=== PATIENT | male | born 1965 | race Caucasian/White ===

== ENCOUNTER 2021-06-26 11:30 | Outpatient (CLI) | payer MEDICAID ==
--- NOTE | 2021-06-26 12:46 | XRAY Report ---
PROCEDURE: Cervical Spine 2 View INDICATIONS: CERVICALGIA TECHNIQUE: 4 view(s) of the cervical spine were acquired. COMPARISON: None. FINDINGS: Bones: No fractures or dislocations to the T1 level. The lateral masses of C1 appear intact on the odontoid view. No suspicious bony lesions. There is reversal of the normal cervical lordosis, with the apex at the C5-C6 level. There is minima l anterolisthesis seen at C4-C5. There is mild disc space narrowing at C4-C5, with moderate to severe disc space narrowing at C5-C6. T here is endplate irregularity and sclerosis, with bridging anterior osteophytes. Moderate disc space narrowing is seen at C6-C7. Soft tissues: No prevertebral soft tissue swelling. The visualized pulmonary apices are unremarkab le. IMPRESSION: Cervical spine degenerative changes are seen, which are worst at C5-C6. Reviewed by: Jermaine Almeida MD on 06/26/2021 11:45 AM [facility] Approved by: Jermaine Almeida MD on 06/26/2021 11:45 AM [facility] Station ID: [id number]
== END 2021-06-26 11:31 | disposition home or self-care (01) ==
LOC: DI.N 11:30
PROVIDERS: ATTEND Family Medicine
DX: M47.812 Spondylosis without myelopathy or radiculopathy, cervical region (principal)

== ENCOUNTER 2021-08-26 08:12 | Outpatient (CLI) | payer MEDICAID ==
[2021-08-26 12:35] LABS: ALBUMIN 4.2 g/dL (3.2-5.5); ALBUMIN/GLOBULIN RATIO 1.3 (1.0-2.2); ALKALINE PHOSPHATASE 60 IU/L (42-121); ALT ALANINE AMINOTRANSFERASE 23 IU/L (10-60); AST ASPARTATE AMINOTRANSFERASE 19 IU/L (10-42); BILIRUBIN,TOTAL 1.7 mg/dL (0.2-1.0); BUN - BLOOD UREA NITROGEN 21 mg/dL (6-20); CALCIUM 9.3 mg/dL (8.5-10.3); CARBON DIOXIDE - CO2 29 mmol/L (21-32); CHLORIDE 99 mmol/L (101-111); CHOL/HDL RATIO 3.9 (<5.0); CHOLESTEROL 180 mg/dL; CREATININE 1.6 mg/dL (0.6-1.2); GFR - MDRD 45 (>89); GLUCOSE 130 mg/dL (70-100); HDL CHOLESTEROL 46 mg/dL; LDL CHOLESTEROL,CALCULATED 110 mg/dL; LDL/HDL RATIO 2.4 (<3.6); POTASSIUM 3.5 mmol/L (3.5-5.0); SODIUM 138 mmol/L (135-145); TOTAL PROTEIN 7.4 g/dL (6.7-8.2); TRIGLYCERIDES 119 mg/dL; VLDL CHOLESTEROL 24 mg/dL
[2021-08-26 12:46] LABS: THYROID STIMULATING HORMONE 2.32 uIU/mL (0.34-5.60)
[2021-08-26 13:06] LABS: BASOPHILS % (AUTO) 0.6 %; EOSINOPHILS # (AUTO) 0.2 10^3/uL (0.0-0.7); EOSINOPHILS % (AUTO) 2.2 %; HGB - HEMOGLOBIN 17.1 g/dL (14.0-18.0); LYMPHOCYTES # (AUTO) 2.7 10^3/uL (1.5-3.5); LYMPHOCYTES % (AUTO) 37.6 %; MEAN CORPUSCULAR HEMOGLOBIN 30.3 pg (27.0-31.0); MEAN CORPUSCULAR HGB CONC 34.2 g/dL (32.0-36.0); MEAN CORPUSCULAR VOLUME 88.7 fL (80.0-94.0); MEAN PLATELET VOLUME 8.7 fL (7.4-11.4); MONOCYTES # (AUTO) 0.7 10^3/uL (0.0-1.0); MONOCYTES % (AUTO) 9.3 %; NEUTROPHILS # (AUTO) 3.6 10^3/uL (1.5-6.6); PLT - PLATELET COUNT 243 10^3/uL (130-450); RED BLOOD COUNT 5.64 10^6/uL (4.70-6.10); RED CELL DISTRIBUTION WIDTH 12.9 % (12.0-15.0); WHITE BLOOD COUNT 7.2 x10^3/uL (4.8-10.8)
== END 2021-08-26 08:13 | disposition home or self-care (01) ==
LOC: LAB.N 08:12
PROVIDERS: ATTEND Family Medicine
DX: I10 Essential (primary) hypertension (principal); B19.20 Unspecified viral hepatitis C without hepatic coma; R53.82 Chronic fatigue, unspecified
CPT/HCPCS: 36415; 80053; 80061; 83721; 84443; 85025

== ENCOUNTER 2022-01-10 10:44 | Outpatient (CLI) | payer MEDICAID ==
--- NOTE | 2022-01-10 14:12 | Ultrasound Report ---
PROCEDURE: Pelvic Limited or F/U INDICATIONS: Bilateral inguinal hernias TECHNIQUE: Real-time transabdominal scanning was performed of the pelvic organs, with image documentation. COMPARISON: None FINDINGS: Fat-containing right inguinal hernia with fascial defect measuring 1 cm. Left inguinal hernia containing both bowel and fat with 1.5 cm fascial defect. IMPRESSION: Bilateral inguinal hernias, containing bowel and fat on the left and only fat on the right. Reviewed by: Karan Smith MD on 01/10/2022 2:10 PM PST Approved by: Karan Smith MD on 01/10/2022 2:10 PM PST Station ID: [id number]
--- NOTE | 2022-01-10 16:57 | MRI Report ---
PROCEDURE: Cervical Spine W/O INDICATIONS: Cervical spine stenosis TECHNIQUE: Noncontrast sagittal T1 spin echo and T2 fast spin echo, sagittal STIR, foraminal oblique sagittal T2 fast spin echo, and axial gradient echo or T2 fast spin echo through the cervical spine. COMPARISON: None. FINDINGS: Normal cervical spine vertebral body height and alignment. Discogenic marrow edema at the opposing C5 and C6 endplates. Otherwise normal bone marrow signal intensity. Possible elevated T2 signal of the cord at the C3-C4 level corresponding to an area of moderate to se leesa spinal canal stenosis, potentially indicating cord edema. Otherwise normal cord signal. Regional soft tissues are normal in appearance. C2-C3: No spinal canal stenosis. No neural foraminal narrowing on the left. Facet and uncovertebral hypertrophy contribute to mild right neural foraminal stenosis. C3-C4: Posterior disc osteophyte complex flattens the ventral cord. Buckling of ligamentum flavum f lattens the dorsal cord. There is near complete effacement of CSF ventral and dorsal to the cord. Fac et and uncovertebral hypertrophy combine to produce moderate to severe neural foraminal stenosis on t he left and moderate neural foraminal stenosis on the right. C4-C5: Posterior disc-osteophyte complex flattens the ventral cord. Facet and uncovertebral hypertro phy contribute to moderate left and mild right neural foraminal stenosis. C5-C6: Posterior disc-osteophyte complex flattens the ventral cord. Facet and uncovertebral hypertro phy combined to produce moderate left and mild right neural foraminal stenosis. C6-C7: No spinal canal stenosis or neural foraminal stenosis on the left. Facet and uncovertebral hy pertrophy combine to produce mild right neural foraminal narrowing. C7-T1: No spinal canal or neural foraminal stenosis. IMPRESSION: Moderate to severe spinal canal stenosis at C3-C4 with possible elevated T2 signal in the cord at thi s level potentially representing cord edema due to compression. Additional degenerative changes as described above including varying degrees of neural foraminal sten osis up to moderate-severe. Reviewed by: Karan Smith MD on 01/10/2022 4:56 PM PST Approved by: Karan Smith MD on 01/10/2022 4:56 PM PST Station ID: [id number]
== END 2022-01-10 10:45 | disposition home or self-care (01) ==
LOC: DI 10:44
PROVIDERS: ATTEND Family Medicine
DX: K40.20 Bilateral inguinal hernia, without obstruction or gangrene, not specified as recurrent (principal); M48.02 Spinal stenosis, cervical region; M47.812 Spondylosis without myelopathy or radiculopathy, cervical region; M50.31 Other cervical disc degeneration, high cervical region

== ENCOUNTER 2022-02-08 07:39 | Outpatient (CLI) | payer MEDICAID ==
[2022-02-08 12:41] LABS: HGB - HEMOGLOBIN 17.1 g/dL (14.0-18.0); MEAN CORPUSCULAR HGB CONC 34.2 g/dL (32.0-36.0); MEAN CORPUSCULAR VOLUME 90.7 fL (80.0-94.0); MEAN PLATELET VOLUME 8.8 fL (7.4-11.4); RED BLOOD COUNT 5.51 10^6/uL (4.70-6.10); WHITE BLOOD COUNT 7.9 x10^3/uL (4.8-10.8)
[2022-02-08 13:10] LABS: CREATININE 1.8 mg/dL (0.6-1.2); POTASSIUM 3.2 mmol/L (3.5-5.0)
[2022-02-08 13:49] LABS: ESTIMATED AVERAGE GLUCOSE 111 mg/dL (70-100); HEMOGLOBIN A1c% 5.5 % (4.27-6.07)
== END 2022-02-08 07:40 | disposition home or self-care (01) ==
LOC: LAB.N 07:39
PROVIDERS: ATTEND Family Medicine
DX: I12.9 Hypertensive chronic kidney disease with stage 1 through stage 4 chronic kidney disease, or unspecified chronic kidney disease (principal); N18.31 Chronic kidney disease, stage 3a; R73.9 Hyperglycemia, unspecified; K40.90 Unilateral inguinal hernia, without obstruction or gangrene, not specified as recurrent; M54.2 Cervicalgia; G43.909 Migraine, unspecified, not intractable, without status migrainosus
CPT/HCPCS: 36415; 80048; 83036; 85027

== ENCOUNTER 2022-02-09 09:24 | Outpatient (CLI) | payer MEDICAID | END 2022-02-09 09:25 | disposition home or self-care (01) | LOC: LAB.N 09:24 | PROVIDERS: ATTEND Surgery | DX: Z01.812 Encounter for preprocedural laboratory examination (principal); K40.90 Unilateral inguinal hernia, without obstruction or gangrene, not specified as recurrent; Z20.822 Contact with and (suspected) exposure to COVID-19 ==

== ENCOUNTER 2022-04-21 11:40 | Day surgery (SDC) | payer MEDICAID ==
[2022-04-21] MEDS ORDERED: LACTATED RINGERS 1,000 ML IV ONE ×2 (11:44→16:02)
[2022-04-21] MEDS ORDERED: CEFAZOLIN SODIUM IN 0.9 % NACL 2 GM/50 ML BAG IV ONE (11:57)
[2022-04-21] MEDS ORDERED: LIDOCAINE 2%-EPI 1:100000 20 ML MDV ONE (12:48)
[2022-04-21] MEDS ORDERED: BUPIVACAINE 0.25% PF 10 ML VIAL ONE ×2 (12:48→15:22)
--- NOTE | 2022-04-21 13:03 | ANESTHESIA ---
Pre-Anesthesia VS, & Labs - Diagnosis Left Inguinal Hernia - Procedure Open L inguinal hernia repair w mesh Vital Signs: Temp Pulse Resp BP Pulse Ox 36.1 C L 86 16 138/105 H 97 04/21/22 11:54 04/21/22 11:54 04/21/22 11:54 04/21/22 11:54 04/21/22 11:54 Height: 6 ft Weight (kg): 77.9 kg Body Mass Index: 23.3 BMI Classification: Healthy weight - NPO >8 hours - Lab Results Lab results reviewed: Yes Home Medications and Allergies Lisinopril [Zestril] 20 mg PO DAILY 02/08/22 amLODIPine [Norvasc] 10 mg PO DAILY 02/08/22 Allergies/Adverse Reactions: Allergies Allergy/AdvReac Type Severity Reaction Status Date / Time No Known Drug Allergies Allergy Verified 04/21/22 12:03 Anes History & Medical History - Anesthetic History Anesthesia Complications: reports: No previous complications Family history of Anesthesia Complications: Denies Family history of Malignant Hyperthermia: Denies - Medical History Cardiovascular: reports: Hypertension, Murmur, Valve disorder, Other Pulmonary: reports: None Gastrointestinal: reports: Hepatitis Urinary: reports: None Musculoskeletal: reports: Other Endocrine/Autoimmune: reports: None Skin: reports: None - Surgical History Eyes Ears Nose Throat (EENT): reports: Tonsil/Adenoidectomy Exam General: Alert, Oriented x3, Cooperative Dental: WNL Plan Anesthesia Type: General Consent for Procedure(s) Verified and Reviewed: Yes Code Status: Attempt Resuscitation ASA classification: 2-Mild systemic disease Is this case an emergency?: No
[2022-04-21] MEDS ORDERED: ePHEDrine 50 MG/ML VIAL IVP PRN (13:46)
[2022-04-21] MEDS ORDERED: ONDANSETRON 4 MG/2 ML VIAL IVP PRN (13:46)
[2022-04-21] MEDS ORDERED: fentaNYL 100 MCG/2 ML VIAL IVP PRN (13:46)
[2022-04-21] MEDS ORDERED: ATROPINE ABBOJECT 1 MG/10 ML SYRINGE IVP PRN (13:46)
[2022-04-21] MEDS ORDERED: NALOXONE 0.4 MG/ML VIAL IVP PRN (13:46)
[2022-04-21] MEDS ORDERED: MORPHINE 2 MG/ML CARPUJECT IVP PRN (13:46)
[2022-04-21] MEDS ORDERED: HYDROmorphone 0.5 MG/0.5 ML SYRINGE IVP PRN (13:46)
[2022-04-21] MEDS ORDERED: METOCLOPRAMIDE 10 MG/2 ML VIAL IVP PRN (13:46)
[2022-04-21] MEDS ORDERED: LACTATED RINGERS 1,000 ML IV SCH (14:00)
--- NOTE | 2022-04-21 14:45 | HISTORY & PHYSICAL EXAMINATION ---
Chief Complaint - Chief Complaint Chief Complaint: left groin bulge History of Present Illness - History Obtained From Records Reviewed: yes History obtained from: pt Exam Limitations: none - History of Present Illness HPI Comment/Other: painful left inguinal hernia. no problems on the right History - Past Medical History Cardiovascular: reports: Hypertension, Murmur, Valve disorder, Other Respiratory: reports: None Endocrine/Autoimmune: reports: None GI: reports: Hepatitis : reports: None HEENT: reports: Chronic vision loss Psych: reports: Depression, Anxiety, Panic attacks Musculoskeletal: reports: Other Derm: reports: None MRSA Hx?: No - Past Surgical History HEENT: reports: Tonsil/Adenoidectomy Meds/Allgy - Home Medications Home Medications: Ambulatory Orders Medication Instructions Recorded Confirmed Lisinopril [Zestril] 20 mg PO DAILY 02/08/22 04/21/22 amLODIPine [Norvasc] 10 mg PO DAILY 02/08/22 04/21/22 - Allergies Allergies/Adverse Reactions: Allergies Allergy/AdvReac Type Severity Reaction Status Date / Time No Known Drug Allergies Allergy Verified 04/21/22 12:03 Review of Systems - Other Findings Other Findings: 10 pt ros as above otherwise unremarkable Exam - Vital Signs Reviewed Vital Signs: Yes Vital Signs: Vital Signs x48h Temp Pulse Resp BP Pulse Ox 04/21/22 11:54 36.1 C L 86 16 138/105 H 97 - Physical Exam General Appearance: positive: No acute distress, Alert Eyes Bilateral: positive: PERRL, EOMI, No scleral icterus ENT: positive: No signs of dehydration Neck: positive: No JVD, Trachea midline Respiratory: positive: No respiratory distress, Breath sounds nml Cardiovascular: positive: Regular rate & rhythm Abdomen: positive: Non-tender, No distention Neurologic/Psychiatric: positive: Oriented x3 Conclusion/Plan - Problem List (1) Inguinal hernia of left side without obstruction or gangrene Conclusion/Plan: plan open repair. parq held and consent obtained - Lab Results Lab results reviewed: Yes
[2022-04-21] MEDS ORDERED: LIDOCAINE 2%-EPI 1:100000 20 ML MDV SUBQ ONE ×2 (14:51)
[2022-04-21] MEDS ORDERED: BUPIVACAINE 0.25% PF 30 ML VIAL SUBQ ONE ×2 (14:51)
[2022-04-21] MEDS ORDERED: HYDROcod/ACETAM 5/325 MG TABLET PO PRN (15:58)
--- NOTE | 2022-04-21 16:06 | OPERATIVE REPORT ---
Operative Report - General Procedure Date: 04/21/22 Planned Procedure: open left inguinal hernia repair with mesh Pre-Op Diagnosis: left inguinal hernia Procedure Performed: open left inguinal hernia repair with mesh Post Op Diagnosis: indirect inguinal hernia - Procedure Note Primary Surgeon: jacquelyn Anesthesia Technique: Local, MAC Pathology: not sent Estimated Blood Loss (mL): 2 Drain/Tube Type: Other (none) Indications: painful left inguinal hernia Findings: as above Complications: none - Other Other Information/Narrative: Patient was properly identified brought to the operating room and placed in supine position. Sequential compression devices were placed. Monitored anesthesia care and sedation was given. He was prepped and draped in a sterile fashion and given preoperative antibiotics. Local anesthetic was given throughout the procedure. A 5 cm incision was made in the direction of Triston's lines just cephalad of the pubic tubercle. Dissection proceeded with cutting current cautery. The superficial epigastric vein was identified clamped divided and tied with 3-0 Vicryl. Dissection proceeded down to the aponeurosis. The aponeurosis was opened in the direction of its fibers and extended to the external ring. Cord structures were mobilized and brought up. The nerves were carefully protected and preserved. Cord structures were mobilized and brought up. An indirect inguinal hernia was present. The hernia sac was mobilized off the cord structures and suture ligated with 2 O silk and further reduced. Preperitoneal fat was removed. The base was tied with 2 O vicryl. Polypropylene mesh was cut to size and with tails. The mesh was secured with multiple interrupted 0 Ethibond sutures. She was placed along the pubic tubercle, Surya's ligament area and along the shelving border of Poupart's ligament. Sutures were placed medially along the abdominal wall musculature and internal oblique. The medial tail of the mesh was secured to the shelving border of Poupart's ligament with 3 interrupted 0 ethibond sutures recreating the internal ring of appropriate size. An additional suture was placed in the crotch of the mesh recreating an internal ring of appropriate size. Aponeurosis was closed with a running 2-0 Vicryl suture. The opposite was closed with interrupted 3-0 Vicryl suture. Buried interrupted subdermal 3-0 Vicryl sutures were then placed. And was closed with a running 4-0 Monocryl subcuticular suture. Dressing was applied. Patient was awakened and brought to recovery in good condition.
--- NOTE | 2022-04-21 16:28 | ANESTHESIA POST OP EVALUATION ---
Anesthesia Post Eval - Post Anesthesia Eval Vitals: Last Vital Signs Temp 36.2 C L 04/21/22 16:10 Pulse 74 04/21/22 16:10 Resp 18 04/21/22 16:10 BP 103/76 04/21/22 16:10 Pulse Ox 93 04/21/22 16:10 CV Function Including HR & BP: Stable Pain Control: Satisfactory Nausea & Vomiting: Negative Mental Status: Baseline Respiratory Status: Airway Patent Hydration Status: Satisfactory Anesthesia Complications: None
[2022-04-21 17:24] VITALS: BP 115/81
== END 2022-04-21 11:41 | disposition home or self-care (01) ==
LOC: SDS 11:40
PROVIDERS: ATTEND Surgery
DX: K40.90 Unilateral inguinal hernia, without obstruction or gangrene, not specified as recurrent (principal); I34.1 Nonrheumatic mitral (valve) prolapse; F41.0 Panic disorder [episodic paroxysmal anxiety]
CPT/HCPCS: 49505; C1781; J0690; J7120

== ENCOUNTER 2022-08-05 08:00 | Outpatient (CLI) | payer MEDICAID | END 2022-08-05 23:59 | disposition home or self-care (01) | LOC: LAB.N 08:00 | PROVIDERS: ATTEND Family Medicine | DX: R30.0 Dysuria (principal) | CPT/HCPCS: 87086; 87181 ==

== ENCOUNTER 2022-08-10 15:32 | Outpatient (CLI) | payer MEDICAID ==
[2022-08-10 17:43] LABS: BASOPHILS % (AUTO) 0.8 %; EOSINOPHILS # (AUTO) 0.2 10^3/uL (0.0-0.7); EOSINOPHILS % (AUTO) 2.9 %; HCT - HEMATOCRIT 43.9 % (42.0-52.0); HGB - HEMOGLOBIN 15.1 g/dL (14.0-18.0); LYMPHOCYTES # (AUTO) 1.9 10^3/uL (1.5-3.5); LYMPHOCYTES % (AUTO) 36.1 %; MEAN CORPUSCULAR HEMOGLOBIN 30.7 pg (27.0-31.0); MEAN CORPUSCULAR HGB CONC 34.4 g/dL (32.0-36.0); MEAN CORPUSCULAR VOLUME 89.2 fL (80.0-94.0); MEAN PLATELET VOLUME 8.7 fL (7.4-11.4); MONOCYTES # (AUTO) 0.6 10^3/uL (0.0-1.0); MONOCYTES % (AUTO) 11.7 %; NEUTROPHILS # (AUTO) 2.5 10^3/uL (1.5-6.6); NEUTROPHILS % (AUTO) 48.3 %; PLT - PLATELET COUNT 197 10^3/uL (130-450); RED BLOOD COUNT 4.92 10^6/uL (4.70-6.10); RED CELL DISTRIBUTION WIDTH 12.8 % (12.0-15.0); WHITE BLOOD COUNT 5.2 x10^3/uL (4.8-10.8)
[2022-08-10 18:05] LABS: ALBUMIN/GLOBULIN RATIO 1.3 (1.0-2.2); ALKALINE PHOSPHATASE 55 IU/L (42-121); ALT ALANINE AMINOTRANSFERASE 22 IU/L (10-60); AST ASPARTATE AMINOTRANSFERASE 22 IU/L (10-42); BILIRUBIN,TOTAL 1.7 mg/dL (0.2-1.0); BUN - BLOOD UREA NITROGEN 24 mg/dL (6-20); CARBON DIOXIDE - CO2 26 mmol/L (21-32); CHLORIDE 104 mmol/L (101-111); CHOL/HDL RATIO 3.3 (<5.0); CHOLESTEROL 135 mg/dL; CREATININE 1.5 mg/dL (0.6-1.2); GFR - MDRD 48 (>89); GLUCOSE 97 mg/dL (70-100); HDL CHOLESTEROL 41 mg/dL; LDL CHOLESTEROL,CALCULATED 80 mg/dL; POTASSIUM 4.1 mmol/L (3.5-5.0); SODIUM 135 mmol/L (135-145); TOTAL PROTEIN 7.2 g/dL (6.7-8.2); TRIGLYCERIDES 72 mg/dL; VLDL CHOLESTEROL 14 mg/dL
[2022-08-10 18:08] LABS: THYROID STIMULATING HORMONE 1.58 uIU/mL (0.34-5.60)
[2022-08-10 20:45] LABS: ESTIMATED AVERAGE GLUCOSE 103 mg/dL (70-100); HEMOGLOBIN A1c% 5.2 % (4.27-6.07)
== END 2022-08-10 15:33 | disposition home or self-care (01) ==
LOC: LAB.N 15:32
PROVIDERS: ATTEND Family Medicine
DX: I12.9 Hypertensive chronic kidney disease with stage 1 through stage 4 chronic kidney disease, or unspecified chronic kidney disease (principal); N18.31 Chronic kidney disease, stage 3a; M48.02 Spinal stenosis, cervical region
CPT/HCPCS: 36415; 80053; 80061; 83036; 83721; 84443; 85025

== ENCOUNTER 2023-05-15 17:27 | Outpatient (CLI) | payer MEDICAID ==
--- NOTE | 2023-05-16 10:22 | Ultrasound Report ---
PROCEDURE: Testicle w/Doppler INDICATIONS: RLQ ABD PAIN W RADIATION TO SCROTUM TECHNIQUE: Real-time scanning was performed of the scrotum and testicles, with image documentation. Color and p ulse Doppler interrogation was performed of both testicles. COMPARISON: None. FINDINGS: Right: Testicle is absent. Epididymis is normal in overall size and morphology. Epididymis measures 2 .6 x 2 x 1.2 cm. No hydrocele or varicoceles. Overlying scrotal skin is normal in thickness. Left: Testicle is normal in size at 4.6 x 2.9 x 2 cm, and homogeneous in echotexture. Epididymis is normal in overall size and morphology. Epididymis measures 2.1 x 1.3 x 1.2 cm. No hydrocele or varic oceles. Overlying scrotal skin is normal in thickness. Doppler: Color and pulse Doppler demonstrate normal and symmetric arterial flow in both testicles. No inguinal hernia demonstrated. IMPRESSION: 1. No inguinal hernia demonstrated. 2. No hydrocele or varicocele. 3. No left testicle or mass. Right testicle is absent. Reviewed by: Jasper Mota MD on 05/16/2023 10:21 AM PDT Approved by: Jasper Mota MD on 05/16/2023 10:21 AM PDT Station ID: [id number]
== END 2023-05-15 17:28 | disposition home or self-care (01) ==
LOC: DI 17:27
PROVIDERS: ATTEND Physician Assistant Medical
DX: R10.31 Right lower quadrant pain (principal)
CPT/HCPCS: 93975

== ENCOUNTER 2023-06-20 10:46 | Outpatient (CLI) | payer MEDICAID ==
[2023-06-20 11:41] LABS: CREATININE 1.6 mg/dL (0.6-1.3)
--- NOTE | 2023-06-20 14:01 | CT Report ---
PROCEDURE: ABDOMEN/PELVIS W INDICATIONS: ABD PAIN CONTRAST: 100mL Omni 300 TECHNIQUE: After the administration of IV and oral contrast, 5 mm thick sections acquired from the diaphragms to the symphysis. 5 mm thick coronal and sagittal reformats were acquired. For radiation dose reducti on, the following was used: automated exposure control, adjustment of mA and/or kV according to yamini ent size. COMPARISON: Pelvic ultrasound 01/10/2022, testicular ultrasound 05/15/2023 FINDINGS: Image quality: Good Lower chest: Basal atelectasis/scarring. Possible groundglass nodule in the lingula measuring 4 to 5 mm, for which follow-up is optional. No hiatal hernia. Normal heart size. Solid organs: Liver contour is mildly irregular, suggestive of chronic liver disease. Possible cholel ithiasis. There might be a polyp or septation within the gallbladder fundus. No pathologic dilation o f the biliary tree or pancreatic duct. No splenomegaly. A subcentimeter splenic hypoattenuating regio n is too small to characterize. No adrenal nodules. No hydronephrosis. Vessels and lymph nodes: Main portal vein is patent. No abdominal aortic aneurysm. No pathologic lymp h nodes by size criteria. Bowel and peritoneum: No evidence of small bowel obstruction. Annular pancreas. No gastric dilation. Moderate colorectal fecal loading. No signs of acute inflammation. Appendix appears nondilated. No pa thologic intra-abdominal abscess or ascites. Body wall: Possible small bilateral fat-containing inguinal hernias. Pelvis: Prostate is not well evaluated on this study. Bladder appears unremarkable. Bones: Small sclerotic bone lesions may represent bone islands. There are degenerative changes. IMPRESSION: No evidence of small bowel obstruction. No intra-abdominal abscess or pathologic ascites. Moderate co lorectal fecal loading. Nondilated appendix. Irregular liver contour suggestive for chronic liver disease, correlate with LFTs. Possible septation or polyp within the gallbladder, not well evaluated, correlate with ultrasound. Incidentally noted annular pancreas. No signs of acute pancreas inflammation or gastric dilation. Small bilateral fat-containing inguinal hernias suspected. Other incidental findings above. Reviewed by: Tyrell Escamilla MD on 06/20/2023 1:59 PM PDT Approved by: Tyrell Escamilla MD on 06/20/2023 1:59 PM PDT Station ID: [id number]
[2023-06-20] MEDS ORDERED: BARIUM SULFATE 450 ML BOTTLE PO ONE (14:17)
[2023-06-20] MEDS ORDERED: iohexoL-300 100 ML VIAL IVP ONE (14:17)
== END 2023-06-20 10:47 | disposition home or self-care (01) ==
LOC: DI 10:46
PROVIDERS: ATTEND Physician Assistant Medical
DX: R10.31 Right lower quadrant pain (principal); G89.29 Other chronic pain; K40.20 Bilateral inguinal hernia, without obstruction or gangrene, not specified as recurrent
CPT/HCPCS: 36415; 74177; 82565; A9270; Q9967